=== PATIENT | male | born 1950 | race Asian ===

== ENCOUNTER 2020-08-03 05:38 | Day surgery (SDC) | payer OTHER, MEDICARE ==
[2020-07-31 16:55] VITALS: BMI 25.3
[2020-08-03 12:24] VITALS: TEMP 97.3
[2020-08-03 13:06] VITALS: BP 121/86; PULSE 62
== END 2020-08-03 13:14 | disposition home or self-care (01) ==
LOC: JASU-ENDO 05:38
PROVIDERS: ATTEND Internal Medicine Gastroenterology
PROC: 0DB98ZX Excision of Duodenum, Via Natural or Artificial Opening Endoscopic, Diagnostic (ICD-10-PCS; 2020-08-03)
PROC: 0DB78ZX Excision of Stomach, Pylorus, Via Natural or Artificial Opening Endoscopic, Diagnostic (ICD-10-PCS; principal; 2020-08-03 12:01)
DX: K29.80 Duodenitis without bleeding (principal); K29.40 Chronic atrophic gastritis without bleeding; K31.7 Polyp of stomach and duodenum; K92.1 Melena
CPT/HCPCS: 88305-TC; 88342-TC

== ENCOUNTER 2023-12-09 05:14 | Day surgery (SDC) | payer OTHER, MEDICARE ==
[2023-12-08 09:46] VITALS: BMI 24.7
[~2023-12-09 05:14] MED LIST: ACETAMINOPHEN 325 MG TABLET (FP) PO PRN
[2023-12-09] MEDS ORDERED: LIDOCAINE HCL/PF 1% SDV 5ML VIAL ONE (07:17)
[2023-12-09] MEDS ORDERED: POVIDONE-IODINE 5% OPHTHALMIC PREP 30 ML SOLUTION ONE (07:18)
[2023-12-09] MEDS ORDERED: TETRACAINE 0.5% OPHTH SOLN 2 ML BOTTLE ONE (07:18)
[2023-12-09] MEDS ORDERED: BSS (NA/CA/MG/K) BALANCED SALT SOLUTION OPHTH SOLN 15 ML BOTTLE ONE (07:18)
[2023-12-09] MEDS ORDERED: PHENYLEPHRINE/KETOROLAC 4 ML VIAL IO ONE (07:20)
[2023-12-09 08:59] VITALS: RESP 20
[2023-12-09] MEDS ORDERED: PHENYLEPHRINE 2.5% OPTHALMIC DROP 2ML BOTTLE ONE (09:05)
[2023-12-09] MEDS ORDERED: OFLOXACIN 0.3% OPHTHALMIC SOLUTION 5 ML BOTTLE ONE (09:05)
[2023-12-09] MEDS ORDERED: CYCLOPENTOLATE HCL 1% OPHTH SOLN 2 ML BOTTLE ONE (09:05)
[2023-12-09] MEDS ORDERED: KETOROLAC TROMETHAMINE 0.5% EYE DROP 1 DROP DROPS ONE (09:05)
[2023-12-09] MEDS ORDERED: TROPICAMIDE 1% OPHTH SOLN 15 ML BOTTLE ONE (09:05)
[2023-12-09] MEDS: CYCLOPENTOLATE HCL 1% OPHTH SOLN 2 ML BOTTLE OP SCH (09:14)
[2023-12-09] MEDS: KETOROLAC TROMETHAMINE 0.5% EYE DROP 1 DROP DROPS OP SCH (09:15)
[2023-12-09] MEDS: TROPICAMIDE 1% OPHTH SOLN 15 ML BOTTLE OP SCH (09:16)
[2023-12-09] MEDS: PHENYLEPHRINE 2.5% OPHTH SOLN 15 ML BOTTLE OP SCH (09:17)
[2023-12-09] MEDS: OFLOXACIN 0.3% OPHTHALMIC SOLUTION 5 ML BOTTLE OP SCH (09:18)
[2023-12-09] MEDS ORDERED: MIDAZOLAM HCL 2 MG/2 ML SINGLE DOSE VIAL ONE (10:53)
[2023-12-09] MEDS: TETRACAINE 0.5% OPHTH SOLN 2 ML BOTTLE OS ONE ×2 (11:12)
[2023-12-09] MEDS: POVIDONE-IODINE 5% OPHTHALMIC PREP 30 ML SOLUTION OS ONE ×2 (11:14)
[2023-12-09] MEDS: TRYPAN BLUE 0.5 ML DISP.SYRIN IO ONE ×2 (11:21)
[2023-12-09] MEDS: BSS (NA/CA/MG/K) BALANCED SALT SOLUTION OPHTH SOLN 15 ML BOTTLE OS ONE ×2 (11:22)
[2023-12-09] MEDS: LIDOCAINE HCL 1% PRESERVATIVE FREE - 30ML VIAL IO ONE ×2 (11:22)
[2023-12-09] MEDS: CHONDROITIN SU A/HYALUR SOD 1 KIT IO ONE ×2 (11:31)
[2023-12-09] MEDS: PHENYLEPHRINE/KETOROLAC 4 ML VIAL IO ONE ×2 (11:46)
[2023-12-09 12:41] VITALS: BP 132/84; PULSE 59; TEMP 97.3
== END 2023-12-09 12:42 | disposition home or self-care (01) ==
LOC: JASU-SURG 05:14
PROVIDERS: ATTEND Ophthalmology
PROC: 08RK3JZ Replacement of Left Lens with Synthetic Substitute, Percutaneous Approach (ICD-10-PCS; principal; 2023-12-09 11:00)
DX: H26.9 Unspecified cataract (principal)
CPT/HCPCS: J1097; V2632

== ENCOUNTER 2023-12-23 04:37 | Day surgery (SDC) | payer OTHER, MEDICARE ==
[2023-12-21 09:38] VITALS: BMI 24.5
[2023-12-23 08:06] VITALS: RESP 20
[2023-12-23] MEDS ORDERED: OFLOXACIN 0.3% OPHTHALMIC SOLUTION 5 ML BOTTLE ONE (08:17)
[2023-12-23] MEDS ORDERED: KETOROLAC TROMETHAMINE 0.5% EYE DROP 1 DROP DROPS ONE (08:17)
[2023-12-23] MEDS ORDERED: CYCLOPENTOLATE HCL 1% OPHTH SOLN 2 ML BOTTLE ONE (08:17)
[2023-12-23] MEDS ORDERED: TROPICAMIDE 1% OPHTH SOLN 15 ML BOTTLE ONE (08:17)
[2023-12-23] MEDS ORDERED: PHENYLEPHRINE 2.5% OPTHALMIC DROP 2ML BOTTLE ONE (08:17)
[2023-12-23] MEDS: OFLOXACIN 0.3% OPHTHALMIC SOLUTION 5 ML BOTTLE OP SCH (08:40)
[2023-12-23] MEDS: PHENYLEPHRINE 2.5% OPHTH SOLN 15 ML BOTTLE OP SCH (08:42)
[2023-12-23] MEDS: CYCLOPENTOLATE HCL 1% OPHTH SOLN 2 ML BOTTLE OP SCH (08:42)
[2023-12-23] MEDS: TROPICAMIDE 1% OPHTH SOLN 15 ML BOTTLE OP SCH (08:43)
[2023-12-23] MEDS: KETOROLAC TROMETHAMINE 0.5% EYE DROP 1 DROP DROPS OP SCH (08:43)
[2023-12-23] MEDS ORDERED: LIDOCAINE HCL/PF 1% SDV 5ML VIAL ONE (09:18)
[2023-12-23] MEDS ORDERED: TETRACAINE 0.5% OPHTH SOLN 2 ML BOTTLE ONE (09:18)
[2023-12-23] MEDS ORDERED: PHENYLEPHRINE/KETOROLAC 4 ML VIAL IO ONE (09:18)
[2023-12-23] MEDS ORDERED: POVIDONE-IODINE 5% OPHTHALMIC PREP 30 ML SOLUTION ONE (09:19)
[2023-12-23] MEDS ORDERED: MIDAZOLAM HCL 2 MG/2 ML SINGLE DOSE VIAL ONE (10:31)
[2023-12-23] MEDS: TETRACAINE 0.5% OPHTH SOLN 2 ML BOTTLE OD ONE ×2 (10:34)
[2023-12-23] MEDS: POVIDONE-IODINE 5% OPHTHALMIC PREP 30 ML SOLUTION OD ONE ×2 (10:36)
[2023-12-23] MEDS: LIDOCAINE HCL 1% PRESERVATIVE FREE - 30ML VIAL IO ONE ×2 (10:39)
[2023-12-23] MEDS: BSS (NA/CA/MG/K) BALANCED SALT SOLUTION OPHTH SOLN 15 ML BOTTLE OD ONE ×2 (10:43)
[2023-12-23] MEDS: CHONDROITIN SU A/HYALUR SOD 1 KIT IO ONE ×2 (10:48)
[2023-12-23] MEDS: PHENYLEPHRINE/KETOROLAC 4 ML VIAL IO ONE ×2 (11:01)
[2023-12-23 12:26] VITALS: BP 120/70; PULSE 62; TEMP 97.7
== END 2023-12-23 11:46 | disposition home or self-care (01) ==
LOC: JASU-SURG 04:37
PROVIDERS: ATTEND Ophthalmology
PROC: 08RJ3JZ Replacement of Right Lens with Synthetic Substitute, Percutaneous Approach (ICD-10-PCS; principal; 2023-12-23 10:00)
DX: H26.9 Unspecified cataract (principal)
CPT/HCPCS: J1097; V2632